=== PATIENT | female | born 1980 | race African-American/Black ===

== ENCOUNTER 2017-10-16 15:56 | Emergency (ER) | payer BC, SELFPAY ==
[2017-10-16 15:57] VITALS: BP 152/111; PULSE 99; RESP 18; TEMP 36.9; O2SAT 100; BMI 28.1
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
[2017-10-16] MEDS: Ondansetron ODT 4 MG Tablet PO (16:20)
[2017-10-16 16:46] VITALS: BP 152/102; PULSE 89; RESP 16; O2SAT 97
== END 2017-10-16 16:54 | disposition home or self-care (01) ==
PROVIDERS: Emergency Provider Emergency Medicine
DX: S06.0X9A Concussion with loss of consciousness of unspecified duration, initial encounter (principal); R20.2 Paresthesia of skin; R40.2410 Glasgow coma scale score 13-15, unspecified time; E66.9 Obesity, unspecified; Y08.89XA Assault by other specified means, initial encounter; Y93.9 Activity, unspecified; Y92.9 Unspecified place or not applicable; Z90.722 Acquired absence of ovaries, bilateral
CPT/HCPCS: 70450; 99283

== ENCOUNTER → 2018-05-03 16:50 | Outpatient (CLI) | payer BC, SELFPAY ==
--- NOTE | 2018-05-03 16:40 | FLU_PTH ---
PATIENT: MARCIA SAHU LOC: [facility] U#:[id number] AGE/SX: 44/F ROOM: RE05/03/[address]: Dr. 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 Adequate for evaluation. SJ:rg 05/07/18 COMMENT Correlation with clinical, radiologic findings and appropriate follow up are necessary. CYTOLOGY STUDY Slides are reviewed. CYTOLOGY GROSS Received is 40 ml of cloudy light pink labeled with the patient's name and and designated per the requisition as left thyroid nodule. Submitted for cytology preparation including cell block. / 05/04/18 TC:5 CPT: 94607, 20945
== END ==
PROVIDERS: Referring Provider Otolaryngology; Visit Provider Otolaryngology
DX: E04.9 Nontoxic goiter, unspecified (principal)
CPT/HCPCS: 88108; 88305; 88313

== ENCOUNTER 2018-05-18 09:29 | Day surgery (SDC) | payer BC, SELFPAY ==
--- NOTE | 2018-05-18 | VOCOB_PTH ---
PATIENT: MARCIA SAHU [place] [facility] [place][id number] AGE/SX: 37/F ROOM: RE05/18/[address]: Dr. Perfecto Law MD : 1980 BED: DIS: 05/18/2018 SPEC #: [id number] RECD: 05/18/18 12:57 STATUS: MERCEDES ISABEL #: [id number] ADITI: 05/18/18 00:[address]: Perfecto Law DEPT: SURGICAL PATHOLOGY RECD BY: Jeramy Walls ENTERED: 05/18/18 12:57 SP TYPE: VOCAL CORD OTHR DR: No Primary Care Phys Tissues: Vocal cord, NOS Procedures: Surgery Specimen Level IV HEADER OPERATION: Microlaryngoscopy, excision tumor and/or stripping vocal cords PRE-OP DIAGNOSIS: Polyp of vocal cord - right TISSUE SUBMITTED: Right vocal cord polyp MICROSCOPIC DIAGNOSIS Right vocal cord polyp, biopsy: Benign vocal cord polyp. SJ:micki 05/21/18 MICROSCOPIC DESCRIPTION Slides are reviewed. GROSS DESCRIPTION Received in fixative is one container labeled with the patient's name and designated right vocal cord polyp. The specimen consists of a saldivar-pink polyp measuring 0.7 x 0.5 x 0.3 cm. The entire specimen is submitted in one cassette. /SJ:sp 05/18/18 TC: 5 CPT: 19290
[2018-05-18 10:10] VITALS: BP 156/110; PULSE 78; RESP 14; TEMP 36.3; O2SAT 99; BMI 28.8
[2018-05-18 10:50] LABS: Anion Gap 5 (5-15); BUN 10 mg/dL (7-18); BUN/Creat Ratio 14.4 RATIO (10-20); Calcium,Total 8.4 mg/dL (8.5-10.1); Chloride 108 mmol/L (98-107); EST Glomerular Filtration Rate 101 mL/min (>60); Est Glom Filt Rate - Afr Amer 122 mL/min (>60); Estimated Creatinine Clearance 107.01 ml/min; Glucose 77 mg/dL (74-106); Sodium Level 140 mmol/L (136-145); T4 Total, Thyroxin 8.7 ug/dL (4.8-13.9)
[2018-05-18] MEDS: Oxymetazoline 0.05% 1 SPRAY SPRAY.BTL 15 SPRAY (11:45)
[2018-05-18] MEDS: Lidocaine 4% 50 ML Bottle (11:45)
--- NOTE | 2018-05-18 12:02 | OP.PCM_ITS ---
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 She had been noted to have vocal polyps and was making sincere attempts at smoking cessation. This failed to show improvement in resection of the large vocal polyps predominantly on the right was offered in hopes of improvement. The risks, alternatives, potential benefits, and complications were discussed at length and any questions answered to the patient and/or caregiver's satisfaction. Witnessed informed consent was obtained in the office, and the patient and/or caregiver was agreeable to proceed. Procedure went as follows: The patient was identified in the preoperative holding and brought to the operating room he was placed under general anesthesia and it dated. When appropriate anesthesia was obtained, the head of bed was rotated and the patient prepped and draped in usual sterile fashion. A moistened gauze was then placed to protect the upper gums and the Dedo laryng oscope then introduced. Direct laryngoscopy was then carried out. The lateral posterior pharyngeal wall mucosa, tonsillar fossa, vallecula, piriforms, and epiglottis were noted to be normal in appearance. The true and false vocal folds were then brought into view. The patient was then placed in suspension and the operative microscope brought into the field. Using a pledgets soaked in a 50-50 mixture of oxymetazoline and 4% topical lidocaine the true vocal folds were then topicalized. Visualization of the vocal folds revealed a large hemorrhagic polyp arising from the right side and reactive polyp on the left. The right large polyp was then grasped with a microlaryngeal forceps and transected from the vocal mucosa with an up cutting scissor. The specimen was then sent for pathologic evaluation in the area topicalized with pledgets. The pledgets then removed and the patient taken out of suspension and returned to anesthesia where he was revived and extubated without complication having tolerated the procedure well. Type of Anesthesia:: General Anesthesiologist: Perfecto Hill Special Medications: none Specimen's removed: right vocal polyp Drains: none Estimated Blood Loss (mL): 0 mL Fluids Replaced: 800 mL Grafts/Implants Used: none - Complications none - Admit VTE Documentation VTE Present on Admission: No VTE Mechan Device Prophylaxis: SCD's VTE Pharm Prophylaxis ordered?: No
--- NOTE | 2018-05-18 12:03 | DCINST_ITS ---
- Discharge Diagnoses Current Active Problems: Current Active and Chronic Problems Polyp of vocal cord and larynx (Chronic) Other voice and resonance disorders (Chronic) You will use the following diet at home:: Regular Discharge Activity: Return to Normal Activity Call your doctor if your incision/area has: Increased Pain/ Swelling Call your doctor if you observe: Fever of 101 or Higher, Uncontrolled pain Allergies/Adverse Reactions: Allergies No Known Allergies Allergy (Verified 05/17/18 15:38) Medications to take at Discharge Lisinopril [Zestril] 10 mg PO QHS 05/17/18 Primary Care Physician: Care Physician,No Primary [Primary Care Provider] - Test Results: Test results from this visit will be discussed in further detail at your follow- up appointment, if applicable. Please Follow Up With: Perfecto Law MD When: 2 weeks
[2018-05-18 12:10] VITALS: BP 150/99; BP 156/110; PULSE 96; RESP 16; TEMP 36.6; O2SAT 99
[2018-05-18 12:15] VITALS: BP 136/97; BP 156/110; PULSE 84; RESP 16; O2SAT 97
[2018-05-18 12:30] VITALS: BP 130/92; BP 156/110; PULSE 90; RESP 16; TEMP 36.3; O2SAT 100
[2018-05-18 13:11] VITALS: BP 134/84; BP 156/110; PULSE 86; RESP 16; TEMP 36.3; O2SAT 98
== END 2018-05-18 13:13 | disposition home or self-care (01) ==
LOC: SDC 09:29 → AC 09:56
PROVIDERS: Referring Provider Otolaryngology; Visit Provider Otolaryngology
PROC: 0C5S8ZZ Destruction of Larynx, Via Natural or Artificial Opening Endoscopic (ICD-10-PCS; CPT 31572; principal; 2018-05-18 10:45)
DX: J38.1 Polyp of vocal cord and larynx (principal); I10 Essential (primary) hypertension; Z79.899 Other long term (current) drug therapy; R49.0 Dysphonia; F17.200 Nicotine dependence, unspecified, uncomplicated; G25.81 Restless legs syndrome; E04.9 Nontoxic goiter, unspecified
CPT/HCPCS: 31300; 36415; 80048; 84436; 84443; 88305; J7120; J2405

== ENCOUNTER 2018-11-04 17:17 | Emergency (ER) | payer MEDICAID, SELFPAY ==
[2018-11-04 17:18] VITALS: BP 172/120; PULSE 69; RESP 16; TEMP 36.5; BMI 28.9
--- NOTE | 2018-11-04 17:51 | ED.VIS.HA ---
History of Present Illness Chief Complaint: Headache Informant: Patient Onset: Today Context: Sudden Timing: Continuous Quality: Similar Prior Headaches, Throbbing Location: Right side Current Severity: Moderate Maximum Severity: Severe Worsened by: Light Relieved by: Nothing Associated Symptoms: Nausea. Negative for: Fever, Vomiting, Sore Throat, Sinus Pressure, Numbness, Tingling, Preceding Aura, Visual Changes, Blurred Vision, Photophobia, Visual Loss Injury: - - There is no history of trauma Narrative: Patient is a 37-year-old woman with history of migraine headaches. She presents with throbbing right-sided headache started this morning. She does admit to photophobia. Denies neck pain or neck stiffness. Denies paresthesia, anesthesia buttocks. She denies cardiac restrictions. She does report nausea without vomiting diarrhea. She has no urologic symptoms. She denies rash. This is not on similar to prior headaches. Past Medical History - Allergies and Home Meds Allergies/Adverse Reactions: Allergies No Known Allergies Allergy (Verified 11/04/18 18:13) Primary Care Physician: Care Physician,No Primary [Primary Care Provider] - Prior records reviewed: No Past Medical History: - - Past medical history of migraine headaches Lives: With Family Smoking Status: Current some day smoker Alcohol: None Drugs: None Review of Systems General: Denies: Chills, Fever, Sweats Eyes: Denies: Visual changes - bilaterally, Blurred Vision - bilaterally, Diplopia ENT: Denies: Bilateral ear pain, Rhinorrhea, Sore throat Cardiovascular: Denies: Chest pain, Palpitations, Heart racing Respiratory: Denies: Dyspnea, Cough, Dyspnea on exertion Gastrointestinal: Denies: Abdominal pain, Nausea, Vomiting, Diarrhea, Melena, Hematochezia Genitourinary: Denies: Dysuria, Hematuria, Frequency Musculoskeletal: Denies: Myalgias, Arthralgias, Neck pain, Back pain, Swelling, Extremity Pain Skin: Denies: Rash, Wounds Neurological: Reports: Headache. Denies: Weakness, Parasthesia, Numbness Hematologic: Denies: Easy bruising, Easy bleeding Allergy: Denies: Uticaria, Swelling of the mouth Physical Exam Vital Signs/Narrative: Vital Signs Temp Pulse Resp BP 11/04/18 17:18 97.7 F L 69 16 172/120 H Inital Vital Signs reviewed: Yes General: Well nourished, Well developed Head: NC, AT. Negative for: Temporary Artery Tenderness, Vesicular Rash Eyes: Perrl, EOMI, - - There is no papilledema. Difficult to see vessels and fundi secondary to myosis.. Negative for: Pale conjunctiva, Scleral icterus ENT: Moist mucous membranes, No rhinorrhea, TM's clear. Negative for: Nasal congestion, Sinus tenderness Neck: Supple, No Lymphadenopathy, No JVD, Nontender, No Meningismus Cardiovascular: Regular rate, Regular rhythm, No murmurs, Normal S1, Normal S2 Respiratory: No distress, CTA bilaterally, Chest nontender Back: Nontender, Normal Inspection Extremities: Nontender, No edema Skin: Normal color, No rash, No Trauma. Negative for: Cyanosis, Jaundice Neuro: Alert, Oriented x3, Cranial nerves II-XII grossly intact, Normal Strength, Normal Sensation, Normal DTR - DTR 2+ upper and lower extremity and symmetric., Normal Gait, - - Motor testing finger-nose to finger was performed well Psychological: Normal affect Diagnostic/Tx/Re-eval - Medical Decision Making Patient with headache consistent with migraine. IV was established. She was treated with 50 mg of Toradol IV push, 25 minutes of Benadryl followed by 10 mg of Reglan and will reassess in 60 minutes. Patient was reassessed at 2100. Her headache has resolved. Will discharge to home. ED Disposition - Plan for ED Patient: Disposition: Home or Assisted Living Diagnosis: Headache, chronic migraine without aura, intractable Instructions: ED Headache Migraine Referrals: Care Physician,No Primary [Primary Care Provider] - Reji Lomeli MD [STAFF PHYSICIAN] - 1-2 Weeks Additional Instructions: Since she did not have a position referred to Dr. Surinder Lomeli.
[2018-11-04] MEDS: 0.9% Normal Saline 1,000 ML 999 ML IV (18:09)
[2018-11-04] MEDS: DiphenhydrAMINE 50 MG/ML Syringe 25 MG IV (18:09)
[2018-11-04] MEDS: Ketorolac 30 MG/ML Syringe IV (18:09)
[2018-11-04] MEDS: Metoclopramide 10 MG/2 ML Vial IV (18:09)
[2018-11-04 20:19] VITALS: BP 130/109; PULSE 89; RESP 18; TEMP 36.9; O2SAT 97
[2018-11-04 21:06] VITALS: BP 138/62; PULSE 87; RESP 18; O2SAT 99
== END 2018-11-04 21:07 | disposition home or self-care (01) ==
PROVIDERS: Emergency Provider Emergency Medicine
DX: G43.719 Chronic migraine without aura, intractable, without status migrainosus (principal); F17.200 Nicotine dependence, unspecified, uncomplicated
CPT/HCPCS: 96361; 96374; 96375; 99283; J7030

== ENCOUNTER 2020-05-17 22:50 | Emergency (ER) | payer MEDICAID, SELFPAY ==
[2020-05-17 22:51] VITALS: BP 164/111; PULSE 111; RESP 18; TEMP 36.2; O2SAT 96; BMI 29.0
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
[2020-05-18 00:17] LABS: Internal QC Validated? YES +Cl - CLEAR BKGD
[2020-05-18 00:18] LABS: Pregnancy, Serum, hCG Quali. NEGATIVE Negative
[2020-05-18 00:20] LABS: Anion Gap 2 (5-15); BUN 11 mg/dL (7-18); BUN/Creat Ratio 14.3 RATIO (10-20); Chloride 110 mmol/L (98-107); Creatinine, Serum 0.77 mg/dL (0.55-1.02); EST Glomerular Filtration Rate 88 mL/min (>60); Est Glom Filt Rate - Afr Amer 107 mL/min (>60); Estimated Creatinine Clearance 95.39 ml/min; Glucose 91 mg/dL (74-106); Potassium 4.1 mmol/L (3.5-5.1); Sodium Level 144 mmol/L (136-145)
[2020-05-18 01:08] VITALS: BP 189/118; PULSE 98; RESP 15; O2SAT 100
[2020-05-18 01:10] VITALS: O2SAT 99
[2020-05-18 01:25] VITALS: BP 189/115; PULSE 89; RESP 15; O2SAT 98
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
[2020-05-18] MEDS: Naproxen 500 MG Tablet PO (01:29)
[2020-05-18] MEDS: cycloBENZAPRine HCl 10 MG Tablet PO (01:29)
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
== END 2020-05-18 01:35 | disposition home or self-care (01) ==
PROVIDERS: Emergency Provider Emergency Medicine
DX: S16.1XXA Strain of muscle, fascia and tendon at neck level, initial encounter (principal); R10.9 Unspecified abdominal pain; S80.01XA Contusion of right knee, initial encounter; S70.01XA Contusion of right hip, initial encounter; V89.2XXA Person injured in unspecified motor-vehicle accident, traffic, initial encounter; Y93.9 Activity, unspecified; Y92.9 Unspecified place or not applicable
CPT/HCPCS: 70450; 72125; 73130; 73502; 73564; 74177; 80048; 84703; 99284; Q9967; A4216

== ENCOUNTER 2021-03-09 17:57 | Emergency (ER) | payer MEDICAID, SELFPAY ==
[2021-03-09 17:58] VITALS: BP 127/74; PULSE 81; RESP 16; TEMP 36.1; O2SAT 99; BMI 27.8
--- NOTE | 2021-03-09 18:41 | EDS_ITS ---
HPI History of Present Illness Chief Complaint: Constipation Informant: patient Onset/Context/Timing Onset: Days (9) Context: Gradual Onset Timing: Continuous Quality: Sharp Location: Rectal Worsened by: Nothing Relieved by: Nothing Narrative Narrative: Patient presents with constipation that has been getting worse over the past 9 days. Patient states that her last normal bowel movement was 9 days ago. Patient states she has used an enema at home with minimal relief. Patient admits to some pressure and sharp pain in the rectal area. Patient states nothing makes it better nothing makes it worse. Patient denies any nausea or vomiting. Patient denies any abdominal pain. Patient denies any urinary complaints. [facility] Medical History (Updated 03/09/21 @ 23:[address] Perfecto Kasper DO) HTN (hypertension) Home Medications lisinopril [Zestril] 10 mg PO QHS 05/17/18 [History Last Taken 11/04/18] cyclobenzaprine 10 mg PO TID PRN #20 tab 05/18/20 [Rx Last Taken Unknown] naproxen 500 mg PO BID PRN #20 tab 05/18/20 [Rx Last Taken Unknown] amoxicillin-pot clavulanate 875 mg PO Q12H #20 tablet 03/09/21 [Rx Last Taken Unknown] Allergy/AdvReac Type Severity Reaction Status Date / Time No Known Allergies Allergy Verified 03/09/21 17:58 Surgical History (Updated 03/09/21 @ 18:[address] Perfecto Kasper DO) Hx of tubal ligation Social History Smoking Status: Current every day smoker tobacco type: cigarettes ROS ROS ED Constitutional Constitutional ED: Denies chills or fever(s) Eyes Eyes: Denies blurry vision or change in vision ENT ENT ED: Denies rhinorrhea or sore throat Cardiovascular Cardiovascular: Denies chest pain or palpitations Respiratory/Chest Respiratory/Chest: Denies cough or dyspnea Gastrointestinal Gastrointestinal: Reports constipation; Denies nausea or vomiting Genitourinary Genitourinary ED: Denies dysuria or hematuria Musculoskeletal Musculoskeletal: Reports back pain and neck pain Integumentary Denies abscess or rash Neurologic Neurologic: Denies headache(s) or weakness Allergic/Immunologic Allergic/Immunologic ED: Denies mouth swelling or urticaria EXAM Physical Exam Const Vital Signs: 03/09/21 17:58 Temperature 97.0 F L Temperature Source Temporal Pulse Rate 81 Respiratory Rate 16 Blood Pressure 127/74 H Blood Pressure Mean 91 Pulse Ox 99 Oxygen Delivery Method Room Air Positive well nourished and well developed General Appearance ED: well developed HEENT Reports moist mucous membranes Neck supple and no JVD Resp normal respiratory effort and clear to auscultation bilaterally Cardio regular rate, regular rhythm and no murmurs GI normal to inspection, nondistended, normoactive bowel sounds and non-tender Palpation: soft Extremity normal to inspection General Extremety ED: Negative for edema or tenderness General Extremity: Negative for edema Neuro oriented x3, CN's II-XII intact bilaterally and no sensory deficits noted Sensorium / Orientation: alert Motor Exam: strength 5/5 throughout Psych mental status grossly normal Skin no rashes or lesions noted MDM MDM MDM Narrative Medical decision making narrative: Patient was given a soapsuds enema with minimal results. Patient was still feeling constipated. Because of this, acute abdominal x-rays were obtained. There are 3 views. On my interpretation there are a few air-fluid levels in the mid abdomen. There is no free air or evidence of bowel obstruction. This could be due to colitis or mild ileus. Radiologist also interpreted the x-rays and agrees. Patient was given a dose of Augmentin here. Patient was given a prescription for Augmentin. Patient was instructed to take MiraLAX [id number] as needed for constipation. Patient was instructed to follow-up with her primary care physician in 5 to 7 days. Patient understood and was agreeable with the plan. All questions were answered. Radiography Diagnostic Testing: Radiology Impression Acute Abdomen Series 03/09/21 21:09 IMPRESSION: 1. Several air-fluid levels and mild dilatation of the small bowel loops is seen in the central abdomen. Mild gaseous distention and air-fluid loop also seen in the distal transverse colon at the splenic flexure. Findings suggest ileus colitis 2. Normal exam of the chest. Electronically Signed: Dung Duran MD at 21:59 EDT , Service support , Discharge Plan Triage Chief Complaint: Constipation ED Provider: Perfecto Kasper Dx/Rx/DC Orders Clinical Impression: Colitis Instructions: ED Understanding Colitis Prescriptions: New amoxicillin-pot clavulanate [amoxicillin-pot clavulanate] 875 MG tablet 875 mg PO Q12H Qty: 20 RF: 0 No Action lisinopril [Zestril] 10 MG tablet 10 mg PO QHS RF: 0 cyclobenzaprine 10 MG tablet 10 mg PO TID PRN (Reason: Muscle Spasm) Qty: 20 RF: 0 naproxen 500 MG tablet 500 mg PO BID PRN Qty: 20 RF: 0 Primary Care Provider: Care Physician,No Primary Referrals: Rosalva Pires DO [STAFF PHYSICIAN] - 5-7 Days Care Physician,No Primary [Primary Care Provider] - Disposition Disposition: Home, Self Care Discharge Date/Time: 03/09/21 23:38
--- NOTE | 2021-03-09 19:30 | CM.ED ---
SW Note Referral Source: Case Find Referral Reason: No Primary Care Physician (PCP) SW reviewed chart and noted that patient has no PCP. SW provided patient with list of [facility] and [facility] Physician List for reference. SW also provided patient with handout ?Where to go When?. SW remains available for any additional needs. Plan: Provided patient with PCP information and resources [facility]
--- NOTE | 2021-03-09 21:09 | RAD_ITS ---
STUDY: X-RAY - ACUTE ABDOMINAL SERIES REASON FOR EXAM: Female, 40 years old. Constipation TECHNIQUE: Single view of the chest. 4 supine, and erect view(s) of the abdomen were obtained. COMPARISON: None. FINDINGS: The lungs are clear and expanded. Normal size heart. Normal mediastinum and brendan. Normal visualized pulmonary arteries. Normal visualized aortic arch and descending thoracic aorta. Several air-fluid levels and mild dilatation of the small bowel loops is seen in the central abdomen. Mild gaseous distention and air-fluid loop also seen in the distal transverse colon at the splenic flexure. Findings suggest ileus colitis. The soft tissue structures of the abdomen and pelvis are unremarkable. Normal visualized osseous structures. RAD/Acute Abdomen Inc Chest IMPRESSION: 1. Several air-fluid levels and mild dilatation of the small bowel loops is seen in the central abdomen. Mild gaseous distention and air-fluid loop also seen in the distal transverse colon at the splenic flexure. Findings suggest ileus colitis 2. Normal exam of the chest. Electronically Signed: Dung Duran MD at 21:59 EDT , Service support ,
[2021-03-09] MEDS: Amox/Clavulanate 875 MG Tablet PO (23:37)
== END 2021-03-09 23:38 | disposition home or self-care (01) ==
PROVIDERS: Emergency Provider Emergency Medicine
DX: K52.9 Noninfective gastroenteritis and colitis, unspecified (principal); I10 Essential (primary) hypertension; Z79.899 Other long term (current) drug therapy; F17.210 Nicotine dependence, cigarettes, uncomplicated
CPT/HCPCS: 74022; 99284

== ENCOUNTER 2021-05-07 00:07 | Emergency (ER) | payer MEDICAID, SELFPAY ==
[2021-05-07 00:08] VITALS: BP 188/119; PULSE 98; RESP 16; TEMP 36.8; O2SAT 98; BMI 29.5
--- NOTE | 2021-05-07 00:18 | ED.VIS.DENTA ---
HPI History of Present Illness Chief Complaint: Dental Informant: patient Onset/Context/Timing Onset: Days (3) Context: Gradual Onset Timing: Continuous Quality: Throbbing Location: Right lower dentition Current Severity: Severe Maximum Severity: Severe Worsened by: Eating, chewing Relieved by: NSAIDs Associated Symptoms Assocated Symptom - Dental: jaw swelling; Negative for fever or face swelling Narrative Narrative: Patient states she had a tooth break off remotely, and the one next to it which is what is hurting her now for the last 3 days, had a filling fall out. She is to go to a dentist in the [facility] but she moved here recently and needs to find a new one. She denies any systemic symptoms or fevers/chills, no bleeding or discharge. [facility] Medical History (Updated 05/07/21 @ 00:[address] Gopal Fregoso MD) HTN (hypertension) Home Medications amoxicillin 500 mg PO TID #30 tab 05/07/21 [Rx Last Taken Unknown] hydrochlorothiazide 25 mg PO DAILY 05/07/21 [History Last Taken Unknown] Allergy/AdvReac Type Severity Reaction Status Date / Time No Known Allergies Allergy Verified 05/07/21 00:07 Surgical History Hx of tubal ligation Social History Smoking Status: Current every day smoker tobacco type: cigarettes ROS ROS ED Constitutional Constitutional ED: Denies chills or fever(s) Eyes Eyes: Denies change in vision or double vision ENT ENT ED: Reports dental pain; Denies sinus pain or throat swelling Cardiovascular Cardiovascular: Denies chest pain or palpitations Respiratory/Chest Respiratory/Chest: Denies cough or dyspnea Integumentary Denies abscess or rash Neurologic Neurologic: Denies headache(s), paresthesias or weakness EXAM Physical Exam Const Vital Signs: 05/07/21 00:08 Temperature 98.2 F Temperature Source Oral Pulse Rate 98 Respiratory Rate 16 Blood Pressure 188/119 H Blood Pressure Mean 142 Pulse Ox 98 Oxygen Delivery Method Room Air Positive well nourished and well developed General Appearance ED: well developed and NAD HEENT HEENT Narrative: Tooth #27 decayed down to the gumline. Tender tooth #28 without any bleeding or gingivitis. Nearby external gingiva is mildly swollen and tender consistent with an early abscess but nothing well-defined and drainable. Face and Sinus: sinuses nontender Throat: posterior oropharynx normal Eyes PERRL and EOMs intact bilaterally Neck no lymphadenopathy and supple Resp normal respiratory effort Neuro oriented x3 and CN's II-XII intact bilaterally Sensorium / Orientation: alert Gait (Neuro): normal gait Psych mental status grossly normal and thought process normal Skin no rashes or lesions noted and no wounds MDM MDM MDM Narrative Medical decision making narrative: I do not think this small early abscess is amenable to drainage at this time. Prescribed amoxicillin which the patient is amenable to, given dose of Naprosyn here. Discharge Plan Triage Chief Complaint: Dental ED Provider: Gopal Fregoso Dx/Rx/DC Orders Clinical Impression: Abscess, dental Instructions: ED Dental Abscess Prescriptions: New amoxicillin 500 MG tablet 500 mg PO TID Qty: 30 RF: 0 No Action hydrochlorothiazide 25 mg Tablet 25 mg PO DAILY RF: 0 Primary Care Provider: Care Physician,No Primary Referrals: Dentist,Your [STAFF PHYSICIAN] - As soon as possible Disposition Disposition: Home, Self Care
[2021-05-07] MEDS: Naproxen 250 MG Tablet 500 MG PO (00:34)
[2021-05-07] MEDS: Amoxicillin 250 MG Capsule 750 MG PO (00:36)
[2021-05-07 00:39] VITALS: BP 160/98; PULSE 94
== END 2021-05-07 00:39 | disposition home or self-care (01) ==
PROVIDERS: Emergency Provider Emergency Medicine
DX: K04.7 Periapical abscess without sinus (principal); K02.9 Dental caries, unspecified; I10 Essential (primary) hypertension; Z79.899 Other long term (current) drug therapy; F17.210 Nicotine dependence, cigarettes, uncomplicated
CPT/HCPCS: 99283

== ENCOUNTER 2022-03-06 18:41 | Emergency (ER) | payer MEDICAID, SELFPAY ==
[2022-03-06 18:42] VITALS: BP 166/121; PULSE 109; RESP 16; TEMP 36.1; O2SAT 98; BMI 28.1
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
[2022-03-06] MEDS: HYDROcodone Bitartrate/Apap 5/325 Tablet PO (19:07)
--- NOTE | 2022-03-06 19:09 | RAD_ITS ---
STUDY: X-RAY - LEFT KNEE REASON FOR EXAM: Female, 41 years old. trauma TECHNIQUE: 4 view(s) of the knee. COMPARISON: None. FINDINGS: Normal visualized distal femur. Normal visualized proximal tibia and fibula. Normal proximal tibiofibular articulation. There is mild degenerative arthrosis of the medial femorotibial compartment. There is mild degenerative arthrosis of the lateral femorotibial compartment. There is mild degenerative arthrosis of the patellofemoral articulation. The soft tissue structures are unremarkable. RAD/Knee 4 or More Views IMPRESSION: No acute fracture or dislocation. Electronically Signed: Solomon Staley MD at 19:25 EDT ,
== END 2022-03-06 20:18 | disposition home or self-care (01) ==
PROVIDERS: Emergency Provider Emergency Medicine; Visit Provider Emergency Medicine
DX: S80.02XA Contusion of left knee, initial encounter (principal); F17.210 Nicotine dependence, cigarettes, uncomplicated; S80.812A Abrasion, left lower leg, initial encounter; I10 Essential (primary) hypertension; Z79.899 Other long term (current) drug therapy; V28.4XXA Motorcycle driver injured in noncollision transport accident in traffic accident, initial encounter
CPT/HCPCS: 73564; 99283